=== PATIENT | male | born 1980 ===

== ENCOUNTER 2017-02-01 13:29 | Observation (INO) | payer MEDICAID ==
[2017-02-01] MEDS ORDERED: Iohexol 240 (50 ml) PO ONE (14:30)
[2017-02-01] MEDS ORDERED: Iohexol 240 (50 ml) ONE (14:31)
--- NOTE | 2017-02-01 15:09 | ED PDOC ---
HPI: Abdomen Time Seen by Provider: 02/01/17 14:09 Chief Complaint (Nursing): Abdominal Pain Chief Complaint (Provider): Abdominal Pain History Per: Patient History/Exam Limitations: no limitations Onset/Duration Of Symptoms: Days (today) Outside of [place] travel?: Yes Current Symptoms Are (Timing): Still Present Severity: Severe Location Of Pain/Discomfort: RLQ, Other (banding across mid-abdomen) Associated Symptoms: Fever (subjective), Chills, Vomiting (multiple episodes, non-bloody). denies: Diarrhea Additional Complaint(s): Zen Lucero is a 37 year old male, with no pertinent past medical history, who presents to the ED on 02/01/17 for the evaluation of severe abdominal pain that he has experienced since waking up this morning. Pain, described as radiating across his mid-abdomen with secondary localization within his RLQ, has been accompanied by subjective fever, chills and multiple episodes of non-bloody vomiting. Denies diarrhea and reports that he has experienced no similar pains in the past. No previous abdominal surgery, recent travel, antibiotic use or bowel infections. Sick contacts include daughter, who is ill with a viral/throat infection. PMD: Gerda Estrada Past Medical History Reviewed: Historical Data, Nursing Documentation, Vital Signs Vital Signs: Last Vital Signs Temp 99.2 F 02/01/17 13:32 Pulse 77 02/01/17 13:32 Resp 16 02/01/17 13:32 BP 138/74 02/01/17 13:32 Pulse Ox 100 02/01/17 17:57 - Medical History PMH: No Chronic Diseases - Surgical History Surgical History: No Surg Hx - Family History Family History: States: Unknown Family Hx - Living Arrangements Living Arrangements: With Family - Home Medications Home Medications: Ambulatory Orders Medication Instructions Recorded No Known Home Med 02/01/17 - Allergies Allergies/Adverse Reactions: Allergies Allergy/AdvReac Type Severity Reaction Status Date / Time No Known Allergies Allergy Verified 02/01/17 13:32 Review of Systems Constitutional: Positive for: Fever (subjective), Chills Gastrointestinal: Positive for: Vomiting (mulitple episodes, non-bloody), Abdominal Pain (radiating across mid-abdomen, RLQ). Negative for: Diarrhea Physical Exam - Reviewed Nursing Documentation Reviewed: Yes Vital Signs Reviewed: Yes - Physical Exam Appears: Positive for: Non-toxic, In Acute Distress (moderate painful distress) Head Exam: Positive for: ATRAUMATIC, NORMOCEPHALIC Skin: Positive for: Normal Color, Warm, Dry Eye Exam: Positive for: Normal appearance, PERRL ENT: Positive for: Other (dry mucous membranes). Negative for: Pharyngeal Erythema, Tonsillar Exudate, Tonsillar Swelling Cardiovascular/Chest: Positive for: Regular Rate, Rhythm. Negative for: Murmur Respiratory: Positive for: Normal Breath Sounds. Negative for: Respiratory Distress Gastrointestinal/Abdominal: Positive for: Soft, Tenderness (moderate diffuse tenderness, greatest in RLQ), Guarding (of RLQ) Back: Positive for: Normal Inspection Neurologic/Psych: Positive for: Alert, Oriented - Laboratory Results Result Diagrams: 02/01/17 15:19 02/01/17 15:19 - ECG O2 Sat by Pulse Oximetry: 100 (RA) Pulse Ox Interpretation: Normal Medical Decision Making Medical Decision Makin:09 Initial Impression: abdominal pain, vomiting; will r/o appendicitis, enteritis, colitis Initial Plan: * CT A/P w/PO and IV contrast * Labs * Lipase * Influenza A B * Morphine 4mg IVP * Pepcid 20mg IVP * Toradol 15mg IVP * Zofran 4mg IVP * Reevaluation 14:32 Patient will be placed into ED Observation secondary to time-extensive ED workup , see Obs note for further updates. Scribe Attestation: Documented by Janelle Pickens, acting as a scribe for Dannie Rod PA-C. Provider Scribe Attestation: All medical record entries made by the Scribe were at my direction and personally dictated by me. I have reviewed the chart and agree that the record accurately reflects my personal performance of the history, physical exam, medical decision making, and the department course for this patient. I have also personally directed, reviewed, and agree with the discharge instructions and disposition. ED OBSERVATION Date of observation admission: 02/01/17 Time of observation admission: 14:32 - Observation admission statement Patient is being placed in observation because:: Secondary to time-extensive ED workup. - Goals of Observation Goals of observation are:: Pending imaging, labs, reevaluation and final disposition. - Progress Note Progress Note: 02/01/17 15:46 Labs reviewed, mildly elevated WBC count at 12.0. Patient is negative for both Influenza and Strep. Upon provider reevaluation though patient states pain has markedly improved he is still runner within the RLQ w/visible guarding. Tolerating PO, pending CT scan. 02/01/17 17:43 FINDINGS: Lower thorax: Dependent atelectasis Calcified granuloma in the right middle lobe ABDOMEN: Liver: There is hepatomegaly and fatty infiltration of the liver. Gallbladder and bile ducts: Unremarkable. No calcified stones. No ductal dilation. Pancreas: Unremarkable. No mass. No ductal dilation. Spleen: Unremarkable. No splenomegaly. Adrenals: Unremarkable. No mass. Kidneys and ureters: No hydronephrosis or differential renal nephrogram. Stomach and bowel: Small fat-containing non-bowel containing umbilical hernia. Appendix: Fluid distended enhancing appendix to 8 mm. Extensive paraappendicial induration and reactive lymphadenopathy. Cecal bar and regional inflammatory changes. No extra luminal air. Appendix is in the right lower quadrant.No mature para-appendiceal abscess PELVIS: Bladder: Unremarkable. No mass. Reproductive: Unremarkable as visualized. ABDOMEN and PELVIS: Intraperitoneal space: Unremarkable. No free air. No significant fluid collection. Bones/joints: No acute fracture. No dislocation. Soft tissues: See above. Vasculature: Unremarkable. No abdominal aortic aneurysm. Lymph nodes: See above. IMPRESSION: Abnormal examination. Positive for acute appendicitis without periappendiceal abscess. Thank you for allowing us to participate in the care of your patient. Dictated and Authenticated by: Irina Hayward MD 02/01/2017 5:30 PM Eastern Time ([place] & [place]) CT as above. patient will be NPO- last meal last night zosyn ordered call placed to Dr. Lutz surgery software applications architect. 02/01/17 17:[address] Lutz, will arrange for surgery later today, requests hospitalist for admission, requests global supply chain vice president for evaluation. case discussed with Dr. Verenice Flores will be down for evaluation. case discussed with patient understands finding. all questions answered. he was made aware of no eating or drinking pain controlled. abdomen tenderness RLQ with guarding, no distention. 02/01/17 18:00 spoke to resident Bubba will be in for evaluation Disposition - Clinical Impression Clinical Impression: Acute appendicitis - Patient ED Disposition Is Patient to be Admitted: Yes Counseled Patient/Family Regarding: Studies Performed, Diagnosis - Disposition Disposition Time: 17:57 Condition: STABLE - Pt Status Changed To: Hospital Disposition Of: Inpatient - Admit Certification Admit to Inpatient:: After my assessment, the patient will require hospitalization for at least two midnights. This is because of the severity of symptoms shown, intensity of services needed, and/or the medical risk in this patient being treated as an outpatient. - POA Present On Arrival: None
[2017-02-01 15:24] LABS: BASO % 0.2 % (0.0-2.0); HEMATOCRIT 41.9 % (35.0-51.0); LYMPH # 0.8 K/uL (1.0-4.3); LYMPH % 6.4 % (20.0-40.0); MEAN CELL VOLUME 88.6 fl (80.0-94.0); MEAN CORPUSCULAR HEMOGLOBIN 29.8 pg (27.0-31.0); MEAN CORPUSCULAR HGB CONC 33.6 g/dL (33.0-37.0); MEAN PLATELET VOLUME 9.1 fl (7.2-11.7); MONO # 0.6 K/uL (0.0-0.8); MONO % 5.3 % (0.0-10.0); NEUT # 10.5 K/uL (1.8-7.0); NEUT % 88.1 % (50.0-75.0); NRBC % 0.8 % (0.0-0.0); PLATELET COUNT 223 K/uL (130-400); RED CELL DISTRIBUTION WIDTH 13.4 % (11.5-14.5)
[2017-02-01 15:59] LABS: ALB/GLOB RATIO 1.2 (1.0-2.1); ALKALINE PHOSPHATASE 81 U/L (38-126); ALT/SGPT 34 U/L (21-72); AST/SGOT 35 U/L (17-59); BILIRUBIN,TOTAL 0.7 mg/dl (0.2-1.3); BLOOD UREA NITROGEN 14 mg/dl (9-20); CALCIUM 9.4 mg/dL (8.4-10.2); CARBON DIOXIDE 21 mmol/L (22-30); CHLORIDE 104 mmol/L (98-107); GFR AFRICAN-AMERICAN > 60; GLUCOSE,RANDOM 105 mg/dL (75-110); LIPASE 107 U/L (23-300); POTASSIUM 4.1 MMOL/L (3.6-5.0); SODIUM 143 mmol/l (132-148); TOTAL PROTEIN 8.6 G/DL (6.3-8.2)
[2017-02-01] MEDS ORDERED: Iohexol 300 100 ML IJ ONE (16:37)
[2017-02-01 17:11] LABS: NEUTROPHIL 88 % (42-75); TOTAL CELLS COUNTED 100
[2017-02-01 17:18] LABS: RBC URINE 2 /hpf (0-3); URINE BILIRUBIN NEGATIVE (NEGATIVE); URINE BLOOD NEGATIVE (NEGATIVE); URINE COLOR YELLOW (YELLOW); URINE GLUCOSE (UA) NEG (Normal); URINE KETONE NEGATIVE (NEGATIVE); URINE LEUKOCYTE ESTERASE NEG Leu/uL (Negative); URINE PROTEIN NEGATIVE (NEGATIVE); URINE UROBILINOGEN 0.2-1.0 mg/dL (0.2-1.0); WBC URINE < 1 /hpf (0-5)
[2017-02-01] MEDS ORDERED: Piperacillin/Tazobact 3.375 GM in Sodium Chloride 0.9% 100 ML IVPB STA (17:45)
[2017-02-01] MEDS ORDERED: Piperacillin/Tazobact 3.375 gm Inj IVPB ONE (17:50)
--- NOTE | 2017-02-01 18:11 | CP.PCM.HP ---
History of Present Illness - History of Present Illness History of Present Illness: CC: stomach pain HPI: 37 M with no past medical history woke up around 7am due to severe sharp abdominal pain generalized, eventually migrating to RLQ. Patient tried to drink tea and juice however pain was unremitting, nonradiating, and has not been able to eat since the pain began. 5 episodes of emesis consisting of water/juice/ tea. Patient denies recent illness, fever, chills, weight loss, weakness, fatigue, chest pain, palpitations, dyspnea, orthopnea, PND, abdominal pain, nausea, vomiting, constipation, diarrhea, myalgias, dysuria, hematuria, hematochezia, melena. METS >4. No false teeth. No hx OR CVA, no pulmonary issues. In ER, CT AP + acute appendicitis, Surgery was called, Dr. Borja. Zosyn started , pain control. ROS: per HPI all other systems reviewed and negative PMH: none PSH: vasectomy 4 years ago FH: denies SH: ETOH weekends, mod-heavy. denies tobacco, IVDU. Meds: as below Allergies: NKDA Vitals: Temp Pulse Resp BP Pulse Ox 99.2 F 77 16 138/74 100 02/01/17 13:32 02/01/17 13:32 02/01/17 13:32 02/01/17 13:32 02/01/17 18:00 Constitutional- cooperative, awake, alert. Head- NCAT, PERRL Eye- PERRL, normal accommodation ENT- normal exam, MMM. Neck- normal inspection, supple, no JVD Respiratory- decreased BS, no wheezes rales rhonchi Cardiovascular- RRR, +S1, +S2 no MRG GI/Abdominal- normal bowel sounds, soft, tender RLQ. no masses, no HSM Extremities Exam- normal capillary refill, normal inspection Neurological Exam- alert, oriented Skin- warm and dry Psych - normal mood, affect appropriate Labs: 02/01/17 15:19 02/01/17 15:19 Rads: CT AP + acute appendicitis Allergies No Known Allergies Allergy (Verified 02/01/17 13:32) Height & Weight Height 5 ft 3 in Weight 160 lb Start Date/Time Active Medications 02/01/17 17:45 Piperacillin/Tazobact [Zosyn] 3.375 gm Sodium Chloride 0.9% 100 ml IVPB STAT 02/01/17 18:37 Ketorolac [Toradol] 15 mg IVP Q6 PRN Ondansetron [Zofran Inj] 4 mg IVP Q4 PRN 02/01/17 18:45 Potassium Ch 20mEq in D5-1/2NS [Potassium Chl 20 mEq in D5-1/2NS] 1,000 ml IV 125 mls/hr 02/01/17 21:00 Piperacillin/Tazobact [Zosyn] 3.375 gm Sodium Chloride 0.9% 100 ml IVPB Q12 Assessment and Plan: 37 M with no past medical history woke up around 7am due to severe sharp abdominal pain generalized, tried to drink tea and juice, unremitting, nonradiating, has not been able to eat since the pain began. 5 episodes of emesis, water/juice/tea. Pain migrated to RLQ. Patient did have some Patient denies recent illness, fever, chills, weight loss, weakness, fatigue, chest pain, palpitations, dyspnea, orthopnea, PND, abdominal pain, nausea, vomiting, constipation, diarrhea, myalgias, dysuria, hematuria, hematochezia, melena. METS >4. No false teeth. No hx OR CVA, no pulmonary issues. Acute Appendicitis Afebrile WBC 12 Surgery Consult : Dr. Borja For OR tonight; NPO on D5 11/11 NS +20KCl @125cc Pain control with Toradol Continue Zosyn 3.375 q8h Zofran IV for nausea DVT ppx SCDs Present on Admission - Present on Admission Any Indicators Present on Admission: No Past Patient History - Past Social History Smoking Status: Light Smoker < 10 Cigarettes Daily - PSYCHIATRIC Hx Substance Use: No - SURGICAL HISTORY Hx Surgeries: Yes Other/Comment: vasectomy Meds Allergies/Adverse Reactions: Allergies Allergy/AdvReac Type Severity Reaction Status Date / Time No Known Allergies Allergy Verified 02/01/17 13:32 Results - Vital Signs Recent Vital Signs: Last Vital Signs Temp 99.2 F 02/01/17 13:32 Pulse 77 02/01/17 13:32 Resp 16 02/01/17 13:32 BP 138/74 02/01/17 13:32 Pulse Ox 100 02/01/17 18:00 - Labs Result Diagrams: 02/01/17 15:19 02/01/17 15:19 Labs: Laboratory Results - last 24 hr 02/01/17 02/01/17 15:19 17:10 WBC 12.0 H RBC 4.73 Hgb 14.1 Hct 41.9 MCV 88.6 MCH 29.8 MCHC 33.6 RDW 13.4 Plt Count 223 MPV 9.1 Neut % (Auto) 88.1 H Lymph % (Auto) 6.4 L [place] % (Auto) 5.3 Eos % (Auto) 0.0 Baso % (Auto) 0.2 Neut # 10.5 H Lymph # 0.8 L [place] # 0.6 Eos # 0.0 Baso # 0.0 Neutrophils % (Manual) 88 H Lymphocytes % (Manual) 7 L Monocytes % (Manual) 5 Platelet Estimate Normal RBC Morphology Normal Sodium 143 Potassium 4.1 Chloride 104 Carbon Dioxide 21 L Anion Gap 22 H BUN 14 Creatinine 0.8 Est GFR ( Amer) > 60 Est GFR (Non-Af Amer) > 60 Random Glucose 105 Calcium 9.4 Total Bilirubin 0.7 AST 35 ALT 34 Alkaline Phosphatase 81 Total Protein 8.6 H Albumin 4.8 Globulin 3.9 Albumin/Globulin Ratio 1.2 Lipase 107 Urine Color Yellow Urine Clarity Clear Urine pH 5.0 Ur Specific [place] 1.020 Urine Protein Negative Urine Glucose (UA) Neg Urine Ketones Negative Urine Blood Negative Urine Nitrate Negative Urine Bilirubin Negative Urine Urobilinogen 0.2-1.0 Ur Leukocyte Esterase Neg Urine RBC (Auto) 2 Urine Microscopic WBC < 1 Influenza Typ A,B (EIA) Negative for flu a/b Grp A Beta Strep Ag Negative
[2017-02-01] MEDS: Potassium Ch 20mEq in D5-1/2NS 1,000 ML IV SCH (19:30)
--- NOTE | 2017-02-01 19:34 | CP.PCM.CON ---
<Patti Mac - Last Filed: 02/01/17 19:26> History of Present Illness - History of Present Illness History of Present Illness: General Surgery - Dr. Borja 37yo M w/ no pmh, presented to ED today w/ RLQ abdominal pain, N/V x1day. Pt states his pain started yesterday night as a generalized abdominal discomfort. This morning the pain became worse, located in the periumbilical region, migrated to the RLQ by the time he arrived to the ED. Pt had associated nausea and vomited several times, gastric contents. He denies any Fevers, Chills, SOB/ Chest pain, Diarrhea, Constipation, Dysuria, Hematuria. PMH: none PSH: vasectomy No meds/NKDA Pt was seen in the ED. Vitals stable and wnl. Labs significant for wbc of 12. CT abd/pelvis w/ 8mm fluid filled dilated appendix with wall enhancement indicative for acute appendicitis. Pt was admitted to medical service and surgery consulted. Review of Systems - Review of Systems All systems: reviewed and no additional remarkable complaints except (as per HPI ) Past Patient History - Past Social History Smoking Status: Light Smoker < 10 Cigarettes Daily - MUSCULOSKELETAL/RHEUMATOLOGICAL Hx Falls: No - PSYCHIATRIC Hx Substance Use: No - SURGICAL HISTORY Hx Surgeries: Yes Other/Comment: vasectomy Meds Allergies/Adverse Reactions: Allergies Allergy/AdvReac Type Severity Reaction Status Date / Time No Known Allergies Allergy Verified 02/01/17 13:32 - Medications Medications: Current Medications Potassium Chloride/Dextrose/Sod Cl (Potassium Chl 20 Meq In D5-1/2ns) 1,000 mls @ 125 mls/hr IV .Q8H [place] Stop: 02/02/17 18:46 Piperacillin Sod/Tazobactam (Sod 3.375 gm/ Sodium Chloride) 100 mls @ 100 mls/ hr IVPB Q12 [place] Morphine Sulfate (Morphine) 4 mg IVP Q4 PRN PRN Reason: Pain, moderate (4-7) Ondansetron HCl (Zofran Inj) 4 mg IVP Q4 PRN PRN Reason: Nausea/Vomiting Physical Exam - Constitutional Appears: No Acute Distress - Head Exam Head Exam: ATRAUMATIC, NORMAL INSPECTION, NORMOCEPHALIC - Eye Exam Eye Exam: EOMI, Normal appearance - ENT Exam ENT Exam: Mucous Membranes Dry - Respiratory Exam Respiratory Exam: NORMAL BREATHING PATTERN. absent: Respiratory Distress - Cardiovascular Exam Cardiovascular Exam: REGULAR RHYTHM - GI/Abdominal Exam GI & Abdominal Exam: Soft, Tenderness (RLQ, McBurney's pt., + Rovsings). absent : Distended, Firm, Guarding, Rebound, Rigid - Neurological Exam Neurological exam: Alert, Oriented x3 - Psychiatric Exam Psychiatric exam: Normal Affect, Normal Mood - Skin Skin Exam: Dry, Intact Results - Vital Signs Recent Vital Signs: Last Vital Signs Temp 99.7 F H 02/01/17 18:04 Pulse 89 02/01/17 18:04 Resp 20 02/01/17 18:04 BP 133/70 02/01/17 18:04 Pulse Ox 98 02/01/17 18:04 - Labs Result Diagrams: 02/01/17 15:19 02/01/17 15:19 Labs: Laboratory Results - last 24 hr 02/01/17 02/01/17 15:19 17:10 WBC 12.0 H RBC 4.73 Hgb 14.1 Hct 41.9 MCV 88.6 MCH 29.8 MCHC 33.6 RDW 13.4 Plt Count 223 MPV 9.1 Neut % (Auto) 88.1 H Lymph % (Auto) 6.4 L [place] % (Auto) 5.3 Eos % (Auto) 0.0 Baso % (Auto) 0.2 Neut # 10.5 H Lymph # 0.8 L Phillips # 0.6 Eos # 0.0 Baso # 0.0 Neutrophils % (Manual) 88 H Lymphocytes % (Manual) 7 L Monocytes % (Manual) 5 Platelet Estimate Normal RBC Morphology Normal Sodium 143 Potassium 4.1 Chloride 104 Carbon Dioxide 21 L Anion Gap 22 H BUN 14 Creatinine 0.8 Est GFR ( Amer) > 60 Est GFR (Non-Af Amer) > 60 Random Glucose 105 Calcium 9.4 Total Bilirubin 0.7 AST 35 ALT 34 Alkaline Phosphatase 81 Total Protein 8.6 H Albumin 4.8 Globulin 3.9 Albumin/Globulin Ratio 1.2 Lipase 107 Urine Color Yellow Urine Clarity Clear Urine pH 5.0 Ur Specific [place] 1.020 Urine Protein Negative Urine Glucose (UA) Neg Urine Ketones Negative Urine Blood Negative Urine Nitrate Negative Urine Bilirubin Negative Urine Urobilinogen 0.2-1.0 Ur Leukocyte Esterase Neg Urine RBC (Auto) 2 Urine Microscopic WBC < 1 Influenza Typ A,B (EIA) Negative for flu a/b Grp A Beta Strep Ag Negative Assessment & Plan - Assessment and Plan (Free Text) Assessment: 37yo M w/ acute appendicitis -NPO/IVF -IV Abx - Zosyn -Pain control -OR for lap appendectomy ~8pm -DW Dr Jonh Mac PGY2 <Hermelindo Borja - Last Filed: 02/01/17 21:54> History of Present Illness - History of Present Illness History of Present Illness: Patient was seen and examined at the bedside. Agree with resident's note above. Meds - Medications Medications: Current Medications Hydromorphone HCl (Dilaudid) 0.5 mg IVP Q5M PRN PRN Reason: Pain, moderate (4-7) Stop: 02/01/17 22:31 Potassium Chloride/Dextrose/Sod Cl (Potassium Chl 20 Meq In D5-1/2ns) 1,000 mls @ 125 mls/hr IV .Q8H [place] Stop: 02/02/17 18:46 Last Admin: 02/01/17 19:30 Dose: 125 mls/hr Piperacillin Sod/Tazobactam (Sod 3.375 gm/ Sodium Chloride) 100 mls @ 100 mls/ hr IVPB Q12 [place] Morphine Sulfate (Morphine) 4 mg IVP Q4 PRN PRN Reason: Pain, moderate (4-7) Ondansetron HCl (Zofran Inj) 4 mg IVP Q4 PRN PRN Reason: Nausea/Vomiting Ondansetron HCl (Zofran Inj) 4 mg IVP ONCE PRN PRN Reason: Nausea/Vomiting Stop: 02/01/17 22:23 Results - Vital Signs Recent Vital Signs: Last Vital Signs Temp 99.9 F H 02/01/17 19:59 Pulse 80 02/01/17 19:59 Resp 17 02/01/17 19:59 BP 134/64 02/01/17 19:59 Pulse Ox 99 02/01/17 19:59 - Labs Result Diagrams: 02/01/17 15:19 02/01/17 15:19 Labs: Laboratory Results - last 24 hr 02/01/17 02/01/17 15:19 17:10 WBC 12.0 H RBC 4.73 Hgb 14.1 Hct 41.9 MCV 88.6 MCH 29.8 MCHC 33.6 RDW 13.4 Plt Count 223 MPV 9.1 Neut % (Auto) 88.1 H Lymph % (Auto) 6.4 L [place] % (Auto) 5.3 Eos % (Auto) 0.0 Baso % (Auto) 0.2 Neut # 10.5 H Lymph # 0.8 L [place] # 0.6 Eos # 0.0 Baso # 0.0 Neutrophils % (Manual) 88 H Lymphocytes % (Manual) 7 L Monocytes % (Manual) 5 Platelet Estimate Normal RBC Morphology Normal Sodium 143 Potassium 4.1 Chloride 104 Carbon Dioxide 21 L Anion Gap 22 H BUN 14 Creatinine 0.8 Est GFR ( Amer) > 60 Est GFR (Non-Af Amer) > 60 Random Glucose 105 Calcium 9.4 Total Bilirubin 0.7 AST 35 ALT 34 Alkaline Phosphatase 81 Total Protein 8.6 H Albumin 4.8 Globulin 3.9 Albumin/Globulin Ratio 1.2 Lipase 107 Urine Color Yellow Urine Clarity Clear Urine pH 5.0 Ur Specific [place] 1.020 Urine Protein Negative Urine Glucose (UA) Neg Urine Ketones Negative Urine Blood Negative Urine Nitrate Negative Urine Bilirubin Negative Urine Urobilinogen 0.2-1.0 Ur Leukocyte Esterase Neg Urine RBC (Auto) 2 Urine Microscopic WBC < 1 Influenza Typ A,B (EIA) Negative for flu a/b Grp A Beta Strep Ag Negative
[2017-02-01] MEDS ORDERED: HYDROmorphone 0.5 mg/0.5 ml ISec IVP PRN (20:31)
[2017-02-01] MEDS ORDERED: Lactated Ringer's 1,000 ML IV ONE ×5 (20:35→22:55)
[2017-02-01] MEDS ORDERED: Piperacillin/Tazobact 3.375 GM in Sodium Chloride 0.9% 100 ML IVPB SCH ×2 (21:00→22:15)
[2017-02-01] MEDS ORDERED: Rocuronium 10 mg/ml (5 ml) ONE (21:03)
[2017-02-01] MEDS ORDERED: Neostigmine Methylsulfate 3mg/3ml Syringe IV ONE (21:03)
[2017-02-01] MEDS ORDERED: Desflurane Inhalation Anesthetic Liq (240 ml) ONE (21:03)
[2017-02-01] MEDS ORDERED: Neostigmine Methylsulfate 2 MG/2 ML ML IV ONE (21:03)
[2017-02-01] MEDS ORDERED: Propofol 10 mg/ml Inj (20 ML) ONE ×2 (21:03→21:08)
[2017-02-01] MEDS ORDERED: Dexamethasone 4 mg/1 ml ONE (21:03)
[2017-02-01] MEDS ORDERED: Succinylcholine 200 mg/10 ml Inj IV ONE (21:03)
[2017-02-01] MEDS ORDERED: Bupivacaine HCl 0.5% PF (30 ml) Inj ONE (21:05)
--- NOTE | 2017-02-01 21:56 | PCM.SURG1 ---
Surgeon's Initial Post Op Note - Surgeon's Notes Surgeon: Dr. Borja Internal Revenue Agent: Dr. Mac Type of Anesthesia: General Endo Anesthesia Administered By: Alton Pre-Operative Diagnosis: Acute Appendicitis Operative Findings: same Post-Operative Diagnosis: same Operation Performed: Laparoscopic Appendectomy Specimen/Specimens Removed: appendix Estimated Blood Loss: EBL {In ML}: 5 Blood Products Given: N/A Drains Used: No Drains Post-Op Condition: Good Date of Surgery/Procedure: 02/01/17 Time of Surgery/Procedure: 21:55
[2017-02-02] MEDS: Potassium Ch 20mEq in D5-1/2NS 1,000 ML IV SCH (02:45)
[2017-02-02 03:30] VITALS: O2SAT 97
[2017-02-02 03:43] VITALS: BMI 28.3
--- NOTE | 2017-02-02 06:23 | OP ---
PROCEDURE DATE: 02/01/2017 PREOPERATIVE DIAGNOSIS: Acute appendicitis. POSTOPERATIVE DIAGNOSIS: Acute appendicitis. PROCEDURE: Laparoscopic appendectomy. SURGEON: Hermelindo Borja MD PARTS BACK COUNTER MAN: Bubba. ANESTHESIA: General with endotracheal intubation. INTRAVENOUS FLUIDS: Crystalloids. ESTIMATED BLOOD LOSS: 5 mL. INTRAOPERATIVE FINDINGS: Acute appendicitis. SPECIMEN: Appendix. BRIEF HISTORY: The patient is a very pleasant 37-year-old gentleman who presented to the hospital complaining of lower abdominal pain. Upon further investigation, the patient was found to have acute appendicitis. All the risks and benefits of the procedure were explained to the patient and with the patient having a full understanding of all the risks and benefits involved, informed consent was obtained and the patient was taken to the operating room for above stated procedure. PROCEDURE: The patient was brought into the operating room and placed supine on the operating table. Bilateral Flowtron boots were applied to patient's lower extremities. After successful induction of anesthesia and successful endotracheal intubation by the anesthesia team, Marie catheter was inserted into the patient's urinary bladder and the patient's abdomen was shaved and prepped with ChloraPrep stick and draped in the standard surgical fashion. Prior to the beginning of the procedure, timeout was called in the room and everyone in the room were in agreement. Using Veress needle, the patient's abdomen was entered at the umbilicus and pneumoperitoneum was achieved with good opening pressures. Once this was accomplished, using an 11 blade scalpel knife, approximately 5 mm incision was made in the umbilicus in the longitudinal fashion and subsequent to that a 5 mm trocar was introduced into the patient's abdomen. Once this was accomplished, a 5 mm 0-degree scope was introduced into the patient's abdomen and abdomen was inspected. Attention was turned to the lower mid abdomen. Using an 11 blade scalpel knife, 5 mm incision was made in transverse fashion and subsequent to that a 5 mm trocar was introduced into the patient's abdomen. Then, attention was turned to the left lower quadrant of the patient's abdomen. Using 11 blade scalpel knife, approximately 1 cm incision was made in transverse fashion and subsequent to that another 12 mm trocar was introduced into the patient's abdomen. Using 2 atraumatic bowel graspers, appendix was mobilized; however appendix appeared to be stuck to the lateral abdominal wall as well as to the terminal ileum. So at this point in time, I made a decision to use the Harmonic scalpel to dissect the appendix out and mesoappendix was taken with Harmonic scalpel as well. At that point in time, once the appendix was fully freed up and the base of the appendix was clear, 45 mm blue load Endo-AGUSTÍN stapler was fired right across the base of the appendix. At that point in time, EndoCatch bag was introduced into the patient's abdomen and appendix was placed inside of the bag and the bag was closed. At that point in time, the staple line was inspected for hemostasis. Hemostasis was satisfactory. A 12 mm trocar together with EndoCatch bag and appendix were removed from the patient's abdomen and passed off to the [facility] as specimen. Fascial layer at 12 mm trocar site was closed with 2 interrupted 0 Vicryl sutures on UR-6 needle and at that point in time, the patient's abdomen was fully desufflated. The rest of the trocars were removed from the patient's abdomen and skin was closed with 4-0 Monocryl suture in a running subcuticular fashion. At the end of the procedure, incision sites were infiltrated with Marcaine anesthetic. The patient's abdomen was washed and dried and Dermabond was applied to the incision sites. Marie catheter was removed from patient's urinary bladder. The patient was successfully extubated by the anesthesia team, transferred to the stretcher and taken to the recovery room in a stable condition. At the end of the procedure, all instrument counts , needles and sponges were correct. Hermelindo Borja MD cc: [id number] TT: 02/02/2017 06:23:00 jn [email or web address]
[2017-02-02] MEDS: Piperacillin/Tazobact 3.375 GM in Sodium Chloride 0.9% 100 ML IVPB SCH ×2 (06:25→12:36)
--- NOTE | 2017-02-02 07:06 | CT ---
PROCEDURE: CT Abdomen and Pelvis with contrast HISTORY: abdominal pain COMPARISON: None. TECHNIQUE: Contrast dose: Radiation dose: Total exam DLP = mGy-cm. FINDINGS: LOWER THORAX: Calcified granuloma in the right middle lobe. LIVER: Unremarkable. No gross lesion or ductal dilatation. GALLBLADDER AND BILE DUCTS: Unremarkable. PANCREAS: Unremarkable. No gross lesion or ductal dilatation. SPLEEN: Unremarkable. ADRENALS: Unremarkable. No mass. KIDNEYS AND URETERS: Unremarkable. No hydronephrosis. No solid mass. VASCULATURE: Unremarkable. No aortic aneurysm. BOWEL: Unremarkable. No obstruction. No gross mural thickening. APPENDIX: Abnormal enhancement and thickening with periappendiceal fluid consistent with acute appendicitis. PERITONEUM: Unremarkable. No free fluid. No free air. LYMPH NODES: Unremarkable. No enlarged lymph nodes. BLADDER: Unremarkable. REPRODUCTIVE: Unremarkable. BONES: No acute fracture. OTHER FINDINGS: None. IMPRESSION: Acute appendicitis.
[2017-02-02 07:57] LABS: BASO % 0.1 % (0.0-2.0); HEMATOCRIT 37.8 % (35.0-51.0); LYMPH # 0.7 K/uL (1.0-4.3); LYMPH % 6.3 % (20.0-40.0); MEAN CELL VOLUME 88.9 fl (80.0-94.0); MEAN CORPUSCULAR HEMOGLOBIN 30.4 pg (27.0-31.0); MEAN CORPUSCULAR HGB CONC 34.2 g/dL (33.0-37.0); MONO # 0.3 K/uL (0.0-0.8); MONO % 2.6 % (0.0-10.0); NEUT # 9.5 K/uL (1.8-7.0); PLATELET COUNT 214 K/uL (130-400); RED CELL DISTRIBUTION WIDTH 13.1 % (11.5-14.5); WHITE BLOOD COUNT 10.5 K/uL (4.8-10.8)
--- NOTE | 2017-02-02 09:44 | CP.PCM.PN ---
<BubbaPatti - Last Filed: 02/02/17 09:40> Subjective - Date & Time of Evaluation Date of Evaluation: 02/02/17 Time of Evaluation: 09:40 - Subjective Subjective: General Surgery - Dr. Borja Pt S&Radhika GIL. Pt. is POD #1 s/p Lap Appendectomy. He is tolerating regular diet, pain is mild. He has not been OOB yet but plans on doing so today. No f/ c, SOB/Cp. Objective - Vital Signs/Intake and Output Vital Signs (last 24 hours): Temp Pulse Resp BP Pulse Ox 98.2 F 57 L 20 102/58 L 97 02/02/17 08:46 02/02/17 08:46 02/02/17 08:46 02/02/17 08:46 02/02/17 08:46 Intake and Output: 02/02/17 02/02/17 06:59 18:59 Intake Total 800 Balance 800 - Medications Medications: Current Medications Acetaminophen (Tylenol 325mg Tab) 650 mg PO Q6 PRN PRN Reason: Fever >100.4 F Potassium Chloride/Dextrose/Sod Cl (Potassium Chl 20 Meq In D5-1/2ns) 1,000 mls @ 125 mls/hr IV .Q8H [facility] Stop: 02/02/17 18:46 Last Admin: 02/02/17 02:45 Dose: Not Given Piperacillin Sod/Tazobactam (Sod 3.375 gm/ Sodium Chloride) 100 mls @ 100 mls/ hr IVPB 0600,1200,1800,0000 [facility] Last Admin: 02/02/17 06:25 Dose: 100 mls/hr Morphine Sulfate (Morphine) 4 mg IVP Q4 PRN PRN Reason: Pain, moderate (4-7) Ondansetron HCl (Zofran Inj) 4 mg IVP Q4 PRN PRN Reason: Nausea/Vomiting - Labs Labs: 02/02/17 05:30 02/01/17 15:19 - Constitutional Appears: Well, No Acute Distress - Head Exam Head Exam: ATRAUMATIC, NORMOCEPHALIC - Eye Exam Eye Exam: Normal appearance - Respiratory Exam Respiratory Exam: NORMAL BREATHING PATTERN. absent: Respiratory Distress - GI/Abdominal Exam GI & Abdominal Exam: Soft. absent: Distended, Guarding, Tenderness, Rebound Additional comments: surgical incisions c/D/I with dermabond - Neurological Exam Neurological Exam: Alert, Oriented x3 - Psychiatric Exam Psychiatric exam: Normal Affect, Normal Mood - Skin Skin Exam: Dry, Intact Assessment and Plan - Assessment and Plan (Free Text) Assessment: 37yo M POD #1 s/p Lap Appendectomy -Regular diet -OOB/Ambulation -WBC normal -Clear for discharge home from surgical standpoint. Post-op care instructions explained to patient. He should F/U with Dr. Borja in office in [address] Jonh Mac PGy2 <Hermelindo Borja - Last Filed: 02/02/17 15:29> Subjective - Date & Time of Evaluation Date of Evaluation: 02/02/17 Time of Evaluation: 15:00 - Subjective Subjective: Patient was seen and examined at the bedside. Agree with resident's note above. Objective - Vital Signs/Intake and Output Vital Signs (last 24 hours): Temp Pulse Resp BP Pulse Ox 98 F 60 18 113/67 97 02/02/17 13:00 02/02/17 13:00 02/02/17 13:00 02/02/17 13:00 02/02/17 09:00 Intake and Output: 02/02/17 02/02/17 06:59 18:59 Intake Total 800 Balance 800 - Medications Medications: Current Medications Acetaminophen (Tylenol 325mg Tab) 650 mg PO Q6 PRN PRN Reason: Fever >100.4 F Potassium Chloride/Dextrose/Sod Cl (Potassium Chl 20 Meq In D5-1/2ns) 1,000 mls @ 125 mls/hr IV .Q8H [facility] Stop: 02/02/17 18:46 Last Admin: 02/02/17 02:45 Dose: Not Given Piperacillin Sod/Tazobactam (Sod 3.375 gm/ Sodium Chloride) 100 mls @ 100 mls/ hr IVPB 0600,1200,1800,0000 [facility] Last Admin: 02/02/17 12:36 Dose: 100 mls/hr Morphine Sulfate (Morphine) 4 mg IVP Q4 PRN PRN Reason: Pain, moderate (4-7) Ondansetron HCl (Zofran Inj) 4 mg IVP Q4 PRN PRN Reason: Nausea/Vomiting - Labs Labs: 02/02/17 05:30 02/01/17 15:19 Assessment and Plan - Assessment and Plan (Free Text) Plan: - Clear for discharge home from the surgical stand point - Augmentin 875/125 mg po Q12h for 5 days on discharge - Patient will follow up with me in the office in 10 days to m2 weeks
--- NOTE | 2017-02-02 10:17 | CP.PCM.DIS ---
Provider - Provider Date of Admission: 02/01/17 14:32 Attending physician: Verenice Flores DO Time Spent in preparation of Discharge (in minutes): 20 Hospital Course - Lab Results Lab Results: Most Recent Lab Values WBC 10.5 K/uL (4.8-10.8) 02/02/17 05:30 RBC 4.26 Mil/uL (4.40-5.90) L 02/02/17 05:30 Hgb 12.9 g/dL (12.0-18.0) 02/02/17 05:30 Hct 37.8 % (35.0-51.0) 02/02/17 05:30 MCV 88.9 fl (80.0-94.0) 02/02/17 05:30 MCH 30.4 pg (27.0-31.0) 02/02/17 05:30 MCHC 34.2 g/dL (33.0-37.0) 02/02/17 05:30 RDW 13.1 % (11.5-14.5) 02/02/17 05:30 Plt Count 214 K/uL (130-400) 02/02/17 05:30 MPV 9.0 fl (7.2-11.7) 02/02/17 05:30 Neut % (Auto) 91.0 % (50.0-75.0) H 02/02/17 05:30 Lymph % (Auto) 6.3 % (20.0-40.0) L 02/02/17 05:30 [place] % (Auto) 2.6 % (0.0-10.0) 02/02/17 05:30 Eos % (Auto) 0.0 % (0.0-4.0) 02/02/17 05:30 Baso % (Auto) 0.1 % (0.0-2.0) 02/02/17 05:30 Neut # 9.5 K/uL (1.8-7.0) H 02/02/17 05:30 Lymph # 0.7 K/uL (1.0-4.3) L 02/02/17 05:30 [place] # 0.3 K/uL (0.0-0.8) 02/02/17 05:30 Eos # 0.0 K/uL (0.0-0.7) 02/02/17 05:30 Baso # 0.0 K/uL (0.0-0.2) 02/02/17 05:30 Neutrophils % (Manual) 88 % (42-75) H 02/01/17 15:19 Lymphocytes % (Manual) 7 % (20-50) L 02/01/17 15:19 Monocytes % (Manual) 5 % (0-10) 02/01/17 15:19 Platelet Estimate Normal (NORMAL) 02/01/17 15:19 RBC Morphology Normal (NORMAL) 02/01/17 15:19 Sodium 143 mmol/l (132-148) 02/01/17 15:19 Potassium 4.1 MMOL/L (3.6-5.0) 02/01/17 15:19 Chloride 104 mmol/L (98-107) 02/01/17 15:19 Carbon Dioxide 21 mmol/L (22-30) L 02/01/17 15:19 Anion Gap 22 (10-20) H 02/01/17 15:19 BUN 14 mg/dl (9-20) 02/01/17 15:19 Creatinine 0.8 mg/dL (0.8-1.5) 02/01/17 15:19 Est GFR ( Amer) > 60 02/01/17 15:19 Est GFR (Non-Af Amer) > 60 02/01/17 15:19 Random Glucose 105 mg/dL (75-110) 02/01/17 15:19 Calcium 9.4 mg/dL (8.4-10.2) 02/01/17 15:19 Total Bilirubin 0.7 mg/dl (0.2-1.3) 02/01/17 15:19 AST 35 U/L (17-59) 02/01/17 15:19 ALT 34 U/L (21-72) 02/01/17 15:19 Alkaline Phosphatase 81 U/L (38-126) 02/01/17 15:19 Total Protein 8.6 G/DL (6.3-8.2) H 02/01/17 15:19 Albumin 4.8 g/dL (3.5-5.0) 02/01/17 15:19 Globulin 3.9 gm/dL (2.2-3.9) 02/01/17 15:19 Albumin/Globulin Ratio 1.2 (1.0-2.1) 02/01/17 15:19 Lipase 107 U/L (23-300) 02/01/17 15:19 Urine Color Yellow (YELLOW) 02/01/17 17:10 Urine Clarity Clear (Clear) 02/01/17 17:10 Urine pH 5.0 (5.0-8.0) 02/01/17 17:10 Ur Specific [place] 1.020 (1.003-1.030) 02/01/17 17:10 Urine Protein Negative mg/dL (NEGATIVE) 02/01/17 17:10 Urine Glucose (UA) Neg mg/dL (Normal) 02/01/17 17:10 Urine Ketones Negative mg/dL (NEGATIVE) 02/01/17 17:10 Urine Blood Negative (NEGATIVE) 02/01/17 17:10 Urine Nitrate Negative (NEGATIVE) 02/01/17 17:10 Urine Bilirubin Negative (NEGATIVE) 02/01/17 17:10 Urine Urobilinogen 0.2-1.0 mg/dL (0.2-1.0) 02/01/17 17:10 Ur Leukocyte Esterase Neg Vamsi/uL (Negative) 02/01/17 17:10 Urine RBC (Auto) 2 /hpf (0-3) 02/01/17 17:10 Urine Microscopic WBC < 1 /hpf (0-5) 02/01/17 17:10 Influenza Typ A,B (EIA) Negative for flu a/b (NEGATIVE) 02/01/17 15:19 Grp A Beta Strep Ag Negative (NEGATIVE) 02/01/17 15:19 - Hospital Course Hospital Course: 37 M with no past medical history woke up around 7am due to severe sharp abdominal pain generalized, tried to drink tea and juice, unremitting, nonradiating, has not been able to eat since the pain began. 5 episodes of emesis, water/juice/tea. Pain migrated to RLQ. Patient did have some Patient denies recent illness, fever, chills, weight loss, weakness, fatigue, chest pain, palpitations, dyspnea, orthopnea, PND, abdominal pain, nausea, vomiting, constipation, diarrhea, myalgias, dysuria, hematuria, hematochezia, melena. METS >4. No false teeth. No hx [place] CVA, no pulmonary issues. Acute Appendicitis Afebrile WBC 10 TODAY Surgery Consult : Dr. Borja -- s/p Appendectomy, doing very well, pain well contrlled, to follow up in [address] Borja. Patient does not want any percocet and will take Tylenol at home. To be sent home with Augmentin 10 days. Discharge Exam - Head Exam Head Exam: ATRAUMATIC, NORMOCEPHALIC - Eye Exam Eye Exam: EOMI, Normal appearance, PERRL Pupil Exam: NORMAL ACCOMODATION - ENT Exam ENT Exam: Mucous Membranes Moist, Normal Oropharynx - Neck Exam Neck exam: Full Rom, Normal Inspection - Respiratory Exam Respiratory Exam: Clear to PA & Lateral, NORMAL BREATHING PATTERN - Cardiovascular Exam Cardiovascular Exam: RRR, +S1, +S2 - GI/Abdominal Exam GI & Abdominal Exam: Normal Bowel Sounds, Soft. absent: Mass, Tenderness - Extremities Exam Extremities exam: normal capillary refill, pedal pulses present - Back Exam Back exam: absent: CVA tenderness (L), CVA tenderness (R) - Neurological Exam Neurological exam: Alert, Oriented x3 - Psychiatric Exam Psychiatric exam: Normal Affect, Normal Mood - Skin Skin Exam: Dry, Warm Discharge Plan - Discharge Medications Prescriptions: Amoxicillin/Potassium Clav [Augmentin 500-125 Tablet] 1 each PO Q12 #20 tablet - Follow Up Plan Condition: STABLE Disposition: HOME/ ROUTINE Additional Instructions: Patient stable for discharge home. Take Augementin (Amoxicillin Clauvanate) for 10 days Patient does not wish to take Percocet Follow up with Surgeon Dr. Borja in 10 - 14 days. Follow up with Primary Care Physician in 10 days. Resume regular diet. Resume activity as tolerated. Return to ER if condition worsens. Referrals: Hermelindo Borja MD [Staff Provider] -
[2017-02-02 13:07] VITALS: BP 113/67; PULSE 60; RESP 18
[2017-02-02 15:04] LABS: NEUTROPHIL 90 % (42-75); TOTAL CELLS COUNTED 100
[2017-02-02 15:22] VITALS: TEMP 98
== END 2017-02-02 15:32 | disposition home or self-care (01) ==
LOC: H.ER 13:29 → H.EROBSV 14:32 → H.ERHOLD 18:24 → H.MEDSURG1 23:14
PROVIDERS: ADMIT Student in an Organized Health Care Education/Training Program; ATTEND Student in an Organized Health Care Education/Training Program
DX: K35.80 Unspecified acute appendicitis (principal); Z87.891 Personal history of nicotine dependence

== ENCOUNTER 2018-01-01 06:30 | Emergency (ER) | payer MEDICAID ==
[2018-01-01 06:53] VITALS: BMI 29.2
[2018-01-01 07:04] VITALS: TEMP 98.2
[2018-01-01] MEDS ORDERED: Tdap Vaccine 0.5 ml Vial (10-64 yrs) IM ONE ×2 (07:14→08:39)
--- NOTE | 2018-01-01 07:19 | ED PDOC ---
HPI: Skin/Bite Injury Time Seen by Provider: 01/01/18 07:07 Chief Complaint (Nursing): Bite Chief Complaint (Provider): Bite History Per: Patient History/Exam Limitations: no limitations Onset/Duration Of Symptoms: Hrs (x1 hr) Current Symptoms Are (Timing): Still Present Additional Complaint(s): Zen Lucero is a 37 year old male, with no significant past medical history, who presents to the emergency department after he was bitten by his own dog on lower lip this morning approximately at 6:20am. Patient states the attack was unprovoked, dog is up to date with immunizations and observable. He denies any other medical complaints. PMD: None provided. - Animal Bite Description Of The Attack: Unprovoked Attack Description Of The Animal: Family Pet Animal's Immunization Status: UTD Past Medical History Reviewed: Historical Data, Nursing Documentation, Vital Signs Vital Signs: Last Vital Signs Temp 98.2 F 01/01/18 06:53 Pulse 75 01/01/18 06:53 Resp 16 01/01/18 06:53 BP 145/93 H 01/01/18 06:53 Pulse Ox 98 01/01/18 07:59 - Medical History PMH: No Chronic Diseases - Surgical History Surgical History: No Surg Hx - Family History Family History: States: Unknown Family Hx - Home Medications Home Medications: Ambulatory Orders Medication Instructions Recorded Amoxicillin/Potassium Clav 1 each PO Q12 #20 tablet 02/02/17 [Augmentin 500-125 Tablet] Amoxicillin/Potassium Clav 1 tab PO TID #30 tab 01/01/18 [Augmentin 500 mg-125 mg] - Allergies Allergies/Adverse Reactions: Allergies Allergy/AdvReac Type Severity Reaction Status Date / Time No Known Allergies Allergy Verified 01/01/18 06:52 Review of Systems ROS Statement: Except As Marked, All Systems Reviewed And Found Negative ENT: Positive for: Other (bite on lower lip) Physical Exam - Reviewed Nursing Documentation Reviewed: Yes Vital Signs Reviewed: Yes - Physical Exam Appears: Positive for: Well, Non-toxic, No Acute Distress Head Exam: Positive for: ATRAUMATIC, NORMAL INSPECTION, NORMOCEPHALIC Skin: Positive for: Normal Color, Warm, Dry Eye Exam: Positive for: Normal appearance, EOMI, PERRL ENT: Positive for: Other (lower lip 2cm laceration of vermilion border. 2nd horizontal laceration just below lip line. No motor sensory deficits.) Neck: Positive for: Painless ROM, Supple Extremity: Positive for: Normal ROM. Negative for: Tenderness, Deformity, Swelling Neurologic/Psych: Positive for: Alert, Oriented. Negative for: Motor/Sensory Deficits - ECG O2 Sat by Pulse Oximetry: 98 (RA) Pulse Ox Interpretation: Normal Medical Decision Making Medical Decision Making: Initial Impression: animal bite Initial Plan: --Adacel 0.5 ml IM --Reevaluation 07:13 --Cased discussed with Dr. Haddad, who will come to see patient and perform repair. Disposition - Clinical Impression Clinical Impression: Animal bite wound - Patient ED Disposition Is Patient to be Admitted: No Counseled Patient/Family Regarding: Diagnosis, Need For Followup, Rx Given - Disposition Referrals: Ariel Haddad MD [Medical Doctor] - Disposition: Routine/Home Disposition Time: 08:34 Condition: FAIR Additional Instructions: See Dr. Haddad Tuesday 01/02 Prescriptions: Amoxicillin/Potassium Clav [Augmentin 500 mg-125 mg] 1 tab PO TID #30 tab Instructions: Animal Bites (DC) Forms: [employer] (Tuvaluan) Print Language: HAITIAN
[2018-01-01] MEDS ORDERED: Lidocaine 1% Inj (20ml) ONE (07:59)
[2018-01-01 08:58] VITALS: BP 115/73; PULSE 79; RESP 17; O2SAT 99
--- NOTE | 2018-01-07 22:03 | CON ---
EMERGENCY ROOM CONSULTATION DATE: 01/01/2018 I was consulted by the Emergency Room staff, for a 37-year-old male who was bitten by dog and sustained two lacerations to his lip and on physical examination left lower lip 2 cm laceration across the vermilion border. There is also a 2 cm central chin laceration. The orbicularis la nena muscle was involved in the lip laceration and underlying muscle was also involved in the chin laceration. It was not through and through, there are no other intraoral injuries. I explained to the patient and his , the complexities of closing dog bite, significant wound after thorough irrigation and debridement and may need to take oral antibiotics have it close these wounds, but I told them the signs of infection to lookout for and warned them that if there is any signs of infection, the wound needs to be opened and he may need to get admitted for further procedure and antibiotics. I also said there would be scarring and my job as a plastic surgeon was to minimize it. They understood this and wished to proceed. I will now dictate a separate operative report. Ariel Haddad MD
--- NOTE | 2018-01-07 22:13 | OP ---
PROCEDURE DATE: 01/01/2018 PREOPERATIVE DIAGNOSES: As follows: 1. Dog bite to face. 2. A 2 cm left lower lip laceration across the vermilion border. 3. A 2 cm central chin laceration. POSTOPERATIVE DIAGNOSES: As follows: 1. Dog bite to face. 2. A 2 cm left lower lip laceration across the vermilion border. 3. A 2 cm central chin laceration. PROCEDURE PERFORMED: As follows: 1. Complex repair of 2 cm left lip laceration across the vermilion border. 2. Complex repair of 2 cm central chin laceration. SURGEON: Ariel Haddad MD TYPE OF ANESTHESIA: Regional. 1. Left mental nerve block. 2. Right mental nerve block. INDICATIONS FOR PROCEDURE: As follows: Please refer to my separately dictated ER consultation for history and physical. DESCRIPTION OF PROCEDURE: As follows: A 1% lidocaine was used in bilateral mental nerve block. After allowing for sufficient time for the anesthetic to take effect 2 L of normal saline mixed with diluted Betadine, was used to thoroughly irrigate the open wounds. The area was prepped and draped in the usual clean and sterile manner. I debrided the skin edges and mucosal edges of both the wounds with scissors technique and started with the left lip laceration. A 2 cm across the vermilion border 5-0 Monocryl was used to repair the orbicularis la nena muscle in an interrupted fashion. A 5-0 Monocryl suture used to line up approximate the submucosa and deep dermis in an interrupted fashion. A 6-0 Nylon and 6-0 Prolene was used to line up the approximate the vermilion border as well as the epidermis of the 2 cm laceration of the lip. After doing this, the vermilion border was nicely aligned. I then addressed the chin laceration. Debrided the skin edges with 5-0 Monocryl repaired the underlying muscles and deep dermis in an interrupted fashion and then a 6-0 Nylon interrupted to close the 2 cm chin laceration. After doing this, the wound edges were nicely aligned. The patient tolerated the procedure well and was eventually discharged home from the Emergency Room in stable condition. Postoperative wound care, limitation of physical activities, the fact there will be scar, the prognosis of which is unknown. The signs of infection to look out for, the need to take oral antibiotics and follow up with me in few days, was discussed with the patient and his and all questions were answered. Ariel Haddad MD
== END 2018-01-01 08:55 | disposition home or self-care (01) ==
LOC: H.ER 06:30
DX: S01.551A Open bite of lip, initial encounter (principal); W54.0XXA Bitten by dog, initial encounter; S01.81XA Laceration without foreign body of other part of head, initial encounter; Z23 Encounter for immunization